=== PATIENT | female | born 1995 | race Caucasian/White ===

== ENCOUNTER → 2019-11-12 | Outpatient (CLI) | payer BC | LOC: ZCOL.LAB 14:17 | DX: U07.1 COVID-19 (principal) ==

== ENCOUNTER 2020-06-07 14:47 | Emergency (ER) | payer BC ==
[~2020-06-07] VITALS: Ht 162.6 cm; Wt 66.4 kg
[2020-06-07 20:07] VITALS: BP 126/74; PULSE 80; TEMP 98.4
== END 2020-06-07 20:08 | disposition home or self-care (01) ==
LOC: COL.ER 14:47
DX: M94.0 Chondrocostal junction syndrome [Tietze] (principal); M79.602 Pain in left arm